=== PATIENT | male | born 1970 | race Caucasian/White ===

== ENCOUNTER 2016-10-09 20:10 | Inpatient (IN) | payer OTHER ==
[~2016-10-09] VITALS: Ht 177.8 cm; Wt 101.0 kg
[~2016-10-09 20:10] MED LIST: BACTDS PO; CEPH-443 PO; CLIN-73 PO
[2016-10-09 21:50] VITALS: PULSE 68
[2016-10-09] MEDS ORDERED: ONDANSETRON 4 MG INJ IV PRN (22:00)
[2016-10-09] MEDS ORDERED: ACETAMINOPHEN 325 MG TAB PO PRN (22:00)
[2016-10-09] MEDS ORDERED: DEXTROSE 50% 50 ML SYRINGE IV PRN ×2 (22:30)
[2016-10-09] MEDS ORDERED: GLUCOSE GEL 15 GRAM TUBE BUCCAL PRN (22:30)
[2016-10-09] MEDS ORDERED: GLUCOSE GEL 15 GRAM TUBE PO PRN ×2 (22:30)
[2016-10-09] MEDS ORDERED: GLUCAGON 1 MG INJ IM PRN (22:30)
[2016-10-10] VITALS (10 sets, daily range): BP systolic 124–142; BP diastolic 78–88; PULSE 64–81; RESP 18–19; Ht 177.8 cm; Wt 101.0 kg
[2016-10-10] MEDS ORDERED: ACCUCHECK XX SCH (02:00)
[2016-10-10] MEDS: INSULIN ASPART [NOVOLOG] 3 ML PEN SC SCH ×3 (08:00→17:44)
[2016-10-10] MEDS ORDERED: VANCOMYCIN IV PER PHARMACY XX SCH (09:00)
[2016-10-10] MEDS ORDERED: ASPIRIN (EC) 81 MG TAB PO SCH (09:00)
[2016-10-10] MEDS: metFORMIN (XR) 500 MG TAB PO SCH ×2 (09:15→17:44)
[2016-10-10 09:35] LABS: ADD SCAN DIFF NO
[2016-10-10 09:39] LABS: BASOPHILS % 0.2 % (0.0-2.0); EOSINOPHILS # 0.1 10^3/ul (0.0-0.5); EOSINOPHILS % 0.7 % (0.0-7.0); HEMATOCRIT 42.5 % (42.0-52.0); HEMOGLOBIN 13.8 g/dl (14.0-18.0); LYMPHOCYTES # 1.2 10^3/ul (0.8-2.9); LYMPHOCYTES % 12.4 % (15.0-51.0); MEAN CORPUSCULAR HEMOGLOBIN 29.4 pg (29.0-33.0); MEAN CORPUSCULAR HGB CONC 32.5 g/dl (32.0-37.0); MEAN CORPUSCULAR VOLUME 90.4 fl (82.0-101.0); MEAN PLATELET VOLUME 11.7 fl (7.4-10.4); MONOCYTE # 0.6 10^3/ul (0.3-0.9); MONOCYTES % 6.4 % (0.0-11.0); NEUTROPHIL # 7.9 10^3/ul (1.6-7.5); NEUTROPHILS % 79.8 % (39.0-77.0); PLATELET COUNT 195 10^3/UL (140-415); RED CELL DISTRIBUTION WIDTH 13.4 % (11.5-14.5); WHITE BLOOD COUNT 9.9 10^3/ul (4.8-10.8)
[2016-10-10 09:48] LABS: ALBUMIN 3.8 g/dl (3.3-4.9)
[2016-10-10 09:49] LABS: POTASSIUM 3.9 mmol/L (3.5-5.1)
[2016-10-10 09:51] LABS: BILIRUBIN,INDIRECT 0.1 mg/dl (0-1.1); BILIRUBIN,TOTAL 0.1 mg/dl (0.2-1.3); CREATININE 0.69 mg/dl (0.61-1.24)
[2016-10-10 09:52] LABS: ALBUMIN/GLOBULIN RATIO 0.95; TOTAL PROTEIN 7.8 g/dl (6.1-8.1)
--- NOTE | 2016-10-10 10:29 | HP ---
DATE OF ADMISSION: 10/09/2016 TIME SEEN: 2300 CHIEF COMPLAINT: Drug overdose. HISTORY OF PRESENT ILLNESS: The patient is a 46-year-old male with a history of substance abuse incl uding methamphetamine and IV drug use and bilateral upper extremity radiculitis/abscess who was rodrigez sferred from outside hospital for insurance reasons for further treatment and management of methamph etamine overdose. The patient presented at the outside hospital with symptoms of drug overdose and he was stabilized and transferred here for insurance reasons. Currently he seems comfortable except the bilateral upper extremity swelling and redness. Currently, he does not have any complaint. Hi s vitals are stable. The patient developed an abscess while he was injecting IV drugs to his arms a few months ago requiring abscess drainage at [place] a couple months ago. He was also seen here in the ER in July complaining of bilateral upper extremity wound infection. At that time, the jose ent was treated with oral antibiotics and had subsequent ER visit for wound check. Currently, he de nies any chest pain, shortness of breath, fever, chills, but complains of intermittent pain in the f orearms. History of diabetes. REVIEW OF SYSTEMS: Review of systems negative except as in HPI. PAST MEDICAL HISTORY: As per HPI. SOCIAL HISTORY: Substance abuse including methamphetamine and IV drug use. ALLERGIES: NO KNOWN DRUG ALLERGIES. HOME MEDICATIONS: Metformin. PHYSICAL EXAMINATION: VITAL SIGNS: Stable. GENERAL: The patient lying in bed, no acute distress. HEENT: No obvious head deformity. Pupils are reactive to light. EOMs intact. CARDIOVASCULAR: Regular rate and rhythm. No extra sounds. LUNGS: Clear. ABDOMEN: Soft. There is some discomfort to deep palpation diffusely without guarding or rigidity. EXTREMITIES: There is bilateral forearm swelling and redness with some scab-like lesions. Right is more swollen. LABORATORY: Currently pending. IMPRESSION: 1. Status post methamphetamine overdose, currently stable. 2. History of substance abuse including IV drug use. 3. Bilateral upper extremity cellulitis. 4. History of diabetes. PLAN: From the drug overdose point of view the patient is hemodynamically stable. We are going to continue to monitor. For his upper extremity cellulitis he will be placed on antibiotics. We will provide pain medication and antiemetics as needed. He will be placed on insulin and also continued on metformin. We are going to continue to monitor his neuro status and his hemodynamics. Further workup and management per clinical course. Dictated By: MARNI VERGRAA/LOTTIE Conf#: [id number] DID#: [id number]
[2016-10-10] MEDS ORDERED: CEFEPIME 1GM/50 ML (PMX) 50 ML IVPB SCH (10:30)
[2016-10-10] MEDS ORDERED: VANCOMYCIN 2 GM in SOD CHLORIDE 0.9% 500 ML IVPB SCH (12:00)
[2016-10-10] MEDS ORDERED: METF500T3 PO (13:56)
[2016-10-10] MEDS ORDERED: BACTDS PO (13:56)
--- NOTE | 2016-10-10 14:01 | DS ---
Date/Time of Note Date/Time of Note DATE: 10/10/16 TIME: 13:53 Discharge Summary Admission/Discharge Info Admit Date/Time Oct 09, 2016 at 20:10 Discharge Date/Time Final Diagnosis 1. Status post methamphetamine overdose, stable 2. History of substance abuse including IV drug use. 3. Bilateral upper extremity cellulitis. Bactrim, follow up with PCP 4. History of diabetes. on metformin Patient Condition: Stable Hospital Course The patient is a 46-year-old male with a history of substance abuse including methamphetamine and IV drug use and bilateral upper extremity radiculitis/ abscess who was transferred from outside hospital for insurance reasons for further treatment and management of methamphetamine overdose. The patient presented at the outside hospital with symptoms of drug overdose and he was stabilized and transferred here for insurance reasons. Currently he seems comfortable except the bilateral upper extremity swelling and redness. Currently, he does not have any complaint. His vitals are stable. The patient developed an abscess while he was injecting IV drugs to his arms a few months ago requiring abscess drainage at [place] a couple months ago. He was also seen here in the ER in July complaining of bilateral upper extremity wound infection. At that time, the patient was treated with oral antibiotics and had subsequent ER visit for wound check. Currently, he denies any chest pain, shortness of breath, fever, chills, but complains of intermittent pain in the forearms. History of diabetes. Patient is full alert and oriented today. There are several skin lesions on both forarms with minimal redness around. He will be discharged on bactrim for the wounds. He will be on metformin for DM. Home Meds Active Scripts Clindamycin Hcl* (Clindamycin Hcl*) 300 Mg Capsule, 300 MG PO TID for 10 Days, CAP Prov:THOR CORDOVA PA-C 08/02/16 Sulfamethoxazole-Trimethoprim* (Bactrim* DS) 800-160 Mg Tab, 1 TAB PO BID, #14 TAB Prov:LUCHO ACEVEDO PA-C 07/22/16 Cephalexin* (Keflex*) 500 Mg Capsule, 500 MG PO Q6, #40 CAP Prov:LUCHO ACEVEDO PA-C 07/22/16 Follow-up Plan PCP one week Pending Labs Laboratory Tests Test 10/10/16 09:13 10/10/16 11:37 Alanine Aminotransferase (ALT/SGPT) 41IU/L (13-69) Albumin 3.8g/dl (3.3-4.9) Albumin/Globulin Ratio 0.95 Alkaline Phosphatase 136IU/L (42-121) Anion Gap 16 (8-16) Aspartate Amino Transf (AST/SGOT) 28IU/L (15-46) Basophils # 0.010^3/ul (0.0-0.1) Basophils % 0.2% (0.0-2.0) Blood Urea Nitrogen 9mg/dl (7-20) Calcium Level 9.0mg/dl (8.4-10.2) Carbon Dioxide Level 29mmol/L (21-31) Chloride Level 97mmol/L (97-110) Creatinine 0.69mg/dl (0.61-1.24) Direct Bilirubin 0.00mg/dl (0.00-0.20) Eosinophils # 0.110^3/ul (0.0-0.5) Eosinophils % 0.7% (0.0-7.0) Globulin 4.00g/dl (1.3-3.2) Glucose Level 165mg/dl (70-220) Hematocrit 42.5% (42.0-52.0) Hemoglobin 13.8g/dl (14.0-18.0) Hemoglobin A1c 6.1% (0-5.9) Indirect Bilirubin 0.1mg/dl (0-1.1) Lymphocytes # 1.210^3/ul (0.8-2.9) Lymphocytes % 12.4% (15.0-51.0) Mean Corpuscular Hemoglobin 29.4pg (29.0-33.0) Mean Corpuscular Hemoglobin Concent 32.5g/dl (32.0-37.0) Mean Corpuscular Volume 90.4fl (82.0-101.0) Mean Platelet Volume 11.7fl (7.4-10.4) Monocytes # 0.610^3/ul (0.3-0.9) Monocytes % 6.4% (0.0-11.0) Neutrophils # 7.910^3/ul (1.6-7.5) Neutrophils % 79.8% (39.0-77.0) Nucleated Red Blood Cells # 0.010^3/ul (0.0-0.0) Nucleated Red Blood Cells % 0.0/100WBC (0.0-0.0) Platelet Count 48219^3/UL (140-415) Potassium Level 3.9mmol/L (3.5-5.1) Red Blood Count 4.7010^6/ul (4.70-6.10) Red Cell Distribution Width 13.4% (11.5-14.5) Sodium Level 138mmol/L (135-144) Total Bilirubin 0.1mg/dl (0.2-1.3) Total Protein 7.8g/dl (6.1-8.1) White Blood Count 9.910^3/ul (4.8-10.8) Bedside Glucose 171mg/dL (70-220) VIVIEN MICHAEL MD Oct 10, 2016 14:01
[2016-10-10] MEDS ORDERED: VANCOMYCIN 1.5 GM in SOD CHLORIDE 0.9% 250 ML IVPB SCH (20:00)
[2016-10-12] MEDS ORDERED: INFLUENZA VIRUS VACCINE 0.5 ML (DISPENSING) IM* ONE (09:00)
== END 2016-10-10 18:27 | disposition home or self-care (01) | DRG 918 ==
LOC: MS4 20:10
PROVIDERS: ADMIT Internal Medicine; ATTEND Internal Medicine
DX: T43.621A Poisoning by amphetamines, accidental (unintentional), initial encounter (principal); F15.10 Other stimulant abuse, uncomplicated; L03.113 Cellulitis of right upper limb; L03.114 Cellulitis of left upper limb; E11.9 Type 2 diabetes mellitus without complications
CPT/HCPCS: 80053; 82962; 83036; 85025; J0692; J1815; J3370; J7040; J7050